=== PATIENT | female | born 1970 | race Caucasian/White ===

== ENCOUNTER 2023-03-25 09:00 | Outpatient (RCR) | payer BC, OTHER, SELFPAY ==
--- NOTE | 2023-03-25 11:26 | OPREHPOC ---
Outpatient Therapy Plan of Care This is a Multidisciplinary Plan of Care that may contain components documented by all disciplines (PT, OT, and ST.) PT Problem 1 PT Problem #1 Knowledge Deficit PT Goal 1 Goal Patient to demonstrate independence with HEP Target Visit 6 PT Problem 2 PT Problem #2 Pain PT Goal 1 Goal Patien tto report ability to ambulate >30 min with no increase in pain Target Visit 12 PT Problem 3 PT Problem #3 Impaired Strength PT Goal 1 Goal 1. Patient to demonstrate 5/5 strength of R LE to return to ADLs at [facility] 2. Patient to demonstrate SL squat to table with proper mechanics to return to running Target Visit 12 PT Problem 4 PT Problem #4 Impaired Range of Motion PT Goal 1 Goal Patient to demonstrate 0-140 deg of R knee ROM to return to stair navigation at [facility].
--- NOTE | 2023-03-25 11:27 | PTOPEVAL1 ---
Assessment and note entered by Hannah Alvarez DPT Evaluation Information Assessment Status Evaluation Diagnosis R knee pain Onset 02/10/23 Subjective Information Patient reports she underwent ACL reconstruction on 02/10/23. She reports she has been doing PT for 5 weeks. She is visiting her parents for the next 6 weeks and will be doing PT here for that time period. She reports she has been progressing well per protocol and has been cleared to stop use of AD and use of brace. She does present today with single crutch and knee brace. She works from home. She reports difficulty with standing and walking prolonged distances. Reported Pain Level Pain Score 0: Self Report Assessment PT Clinical Summary Patient is a 52 year old female who presents to PT with R knee pain s/p R knee ACL reconstruction. She demonstrates decreased R knee strength, decreased R knee ROM and impaired gait mechanics limting her ability to ambulate prolonged distance and stand for house hold tasks. She would benefit from skilled PT to address impairments and return to PLOF. Plan of Care Interventions Electrical Stimulation,Gait Training,Hot Pack/Cold Pack,Manual Therapy,Mechanical Traction,Neuro Re- education,Patient/Caregiver Educati,Therapeutic Activities,Therapeutic Exercise,Self-Care/Home Management PT Services Indicated Yes Treatment Frequency and 2x weekly for 12 visits Duration These treatments will address the objective and functional deficits as defined above. The patient will be advanced safely and appropriately in order for the patient to progress towards his/her prior level of function. Additional exercises will be introduced and as well as a comprehensive home exercise program upon discharge, if needed, ?to ensure carryover of functional gains achieved in the clinic. This treatment plan has been reviewed and agreement upon by the patient.
--- NOTE | 2023-04-27 16:17 | PTOPPROGNS ---
Assessment and note entered by JT File, PT Evaluation Information Assessment Status Progress Diagnosis R knee pain Onset 02/10/23 Subjective Information patient reports she feels good this date. she reports she has no pain in the R knee. she reports she returns home to [place] next week. she reports she still has some tightness in the R knee with unilateral activities. Assessment PT Clinical Summary mrs. garcía presents to skilled PT for her 10th skilled threapy visit this date. as of today, she presents with no pain, and achieveing full strength of the R knee. she displays normal gait mechanics on level surface. she has met several goals, and made progress towards all other goals. she would do well to continued skilled PT to address her remaing goals for SLS stability and R knee flexion arom of 140 degrees. Plan of Care Interventions Gait Training,Manual Therapy,Mechanical Traction, Neuro Re-education,Patient/Caregiver Educati, Therapeutic Activities,Therapeutic Exercise,Self- Care/Home Management PT Services Indicated Yes Treatment Frequency and continue skilled PT for 2 visits remaining on Duration initial POC These treatments will address the objective and functional deficits as defined above. The patient will be advanced safely and appropriately in order for the patient to progress towards his/her prior level of function. Additional exercises will be introduced and as well as a comprehensive home exercise program upon discharge, if needed, ?to ensure carryover of functional gains achieved in the clinic. This treatment plan has been reviewed and agreement upon by the patient.
--- NOTE | 2023-04-27 16:18 | OPREHPOC ---
Outpatient Therapy Plan of Care This is a Multidisciplinary Plan of Care that may contain components documented by all disciplines (PT, OT, and ST.) PT Problem 1 PT Problem #1 Knowledge Deficit PT Goal 1 Goal Patient to demonstrate independence with HEP Target Visit 6 Progress Met PT Problem 2 PT Problem #2 Pain PT Goal 1 Goal Patien to report ability to ambulate >30 min with no increase in pain Target Visit 12 Progress Met PT Problem 3 PT Problem #3 Impaired Strength PT Goal 1 Goal 1. Patient to demonstrate 5/5 strength of R LE to return to ADLs at [facility] 2. Patient to demonstrate SL squat to table with proper mechanics to return to running Target Visit 12 Progress Partially Met Comment met goal 1, continue 2 PT Problem 4 PT Problem #4 Impaired Range of Motion PT Goal 1 Goal Patient to demonstrate 0-140 deg of R knee ROM to return to stair navigation at [facility]. Progress Partially Met
--- NOTE | 2023-05-10 12:58 | PTOPDC ---
Assessment and note entered by Сергей Hays Evaluation Information Assessment Status Discharge Diagnosis R knee pain Onset 02/10/23 Subjective Information Pt. reports that she notices the right leg getting stronger. She does note that the right leg fatigues quicker than the left, but is getting better. she does notice her quad tone is improved compared to several weeks ago. She reports she will return to [facility] this week and will be discharged from our care. Assessment PT Clinical Summary Pt. demonstrates excellent progress in regards to strength and ROM. Despite her progress minor strength deficits still remain at the right l.e. At this time pt. will be returning to her home [place] where it is recommended she continue with skilled PT to address remaining strength deficits at the right HS and quadriceps mm. to assist with being able to return to all normal activities for a female of her age. Plan of Care PT Services Indicated Yes
== END 2023-05-02 15:49 | disposition home or self-care (01) ==
LOC: CHSPT 09:00
DX: M25.561 Pain in right knee (principal)
CPT/HCPCS: 97016; 97110; 97112; 97150; 97161